=== PATIENT | male | born 1995 | race Caucasian/White ===

== ENCOUNTER 2017-09-20 11:44 | Emergency (ER) | payer SELFPAY ==
[2017-09-20 11:51] VITALS: BP 127/53
--- NOTE | 2017-09-20 13:02 | EKG REPORT ---
SEVERITY:- NORMAL ECG - SINUS RHYTHM : Confirmed by: Masoud Hardy MD 20-Sep-2017 13:01:37
[2017-09-20 13:38] LABS: ABSOLUTE EOSINOPHILS # (AUTO) 0.3 10^3/uL (0.0-0.6); ABSOLUTE LYMPHOCYTES (AUTO) 1.8 10^3/uL (0.5-4.7); ABSOLUTE MONOCYTES (AUTO) 0.6 10^3/uL (0.1-1.4); ABSOLUTE NEUT (AUTO) 4.3 10^3/uL (1.7-8.2); BASOPHILS % (AUTO) 0.7 % (0-2); EOSINOPHILS % (AUTO) 4.7 % (0-6); HEMATOCRIT 46.3 % (37.9-51.0); HEMOGLOBIN 15.5 g/dL (13.5-17.0); LYMPHOCYTES % (AUTO) 25.8 % (13-45); MEAN CORPUSCULAR HEMOGLOBIN 30.6 pg (27.0-33.4); MEAN CORPUSCULAR HGB CONC 33.4 g/dL (32.0-36.0); MEAN CORPUSCULAR VOLUME 92 fl (80-97); MONOCYTES % (AUTO) 8.2 % (3-13); PLATELET COUNT 281 10^3/uL (150-450); RED BLOOD COUNT 5.05 10^6/uL (4.35-5.55); RED CELL DISTRIBUTION WIDTH 13.7 % (11.5-14.0); SEGMENTED NEUTROPHILS % (AUTO) 60.6 % (42-78); TOTAL CELLS COUNTED % (AUTO) 100 %
[2017-09-20 13:52] LABS: ALANINE AMINOTRANSFERASE 28 U/L (21-72); ALBUMIN 4.9 g/dL (3.5-5.0); ALKALINE PHOSPHATASE 66 U/L (38-126); ANION GAP 13 (5-19); ASPARTATE AMINO TRANSFERASE 16 U/L (17-59); BILIRUBIN,DIRECT 0.3 mg/dL (0.0-0.4); BILIRUBIN,TOTAL 0.8 mg/dL (0.2-1.3); BLOOD UREA NITROGEN 14 mg/dL (7-20); CARBON DIOXIDE 28 mmol/L (22-30); CHLORIDE 102 mmol/L (98-107); GLUCOSE 95 mg/dL (75-110); POTASSIUM 4.7 mmol/L (3.6-5.0); SODIUM 142.9 mmol/L (137-145); TOTAL PROTEIN 7.5 g/dL (6.3-8.2)
--- NOTE | 2017-09-20 14:42 | ER Document Report ---
ED Medical Screen (RME) - General Chief Complaint: Chest Pain Stated Complaint: CHEST PAIN Time Seen by Provider: 09/20/17 12:27 Notes: Try to find patient to follow-up on laboratories. [facility] nurse states the patient came up to the desk and asked if laboratories were back. She says when she told him no he became upset and said he was leaving and not waiting any longer. She states that he refused to sign any type of documentation. Patient' s laboratories are reviewed and are unremarkable as was his EKG. TRAVEL OUTSIDE OF THE [place] IN LAST 30 DAYS: No - Related Data Allergies/Adverse Reactions: No Known Allergies Allergy (Verified 09/20/17 12:06) Past Medical History - Social History Chew tobacco use (# tins/day): No Frequency of alcohol use: None Drug Abuse: None Renal/ Medical History: Denies: Hx Peritoneal Dialysis Physical Exam - Vital signs Vitals: Temp Pulse Resp BP Pulse Ox 98.6 F 81 17 127/53 H 100 09/20/17 11:49 09/20/17 11:49 09/20/17 11:49 09/20/17 11:49 09/20/17 11:49 Course - Vital Signs Vital signs: Temp Pulse Resp BP Pulse Ox 98.6 F 81 17 127/53 H 100 09/20/17 11:49 09/20/17 11:49 09/20/17 11:49 09/20/17 11:49 09/20/17 11:49 - Laboratory Result Diagrams: 09/20/17 12:35 09/20/17 12:35 Laboratory results interpreted by me: 09/20/17 12:35 AST 16 L Doctor's Discharge - Discharge Disposition: ELOPED
== END 2017-09-20 13:41 | disposition left against medical advice (07) ==
LOC: ER 11:44
DX: R07.9 Chest pain, unspecified (principal); Z53.29 Procedure and treatment not carried out because of patient's decision for other reasons
CPT/HCPCS: 36415; 80053; 83735; 84484; 85025; 93005; 93010; 99281

== ENCOUNTER 2017-09-21 03:42 | Emergency (ER) | payer SELFPAY ==
[2017-09-21] MEDS ORDERED: MAG HYDROX/AL HYDROX/SIMETH SUSP 30 ML UDCUP PO ONE (04:18)
[2017-09-21] MEDS ORDERED: METOCLOPRAMIDE HCL ORAL SOLN 10 MG/10 ML UDCUP PO ONE (04:18)
[2017-09-21] MEDS ORDERED: LIDOCAINE 2% VISCOUS SOLN 20 ML UDCUP PO ONE (04:18)
--- NOTE | 2017-09-21 04:23 | ER Document Report ---
HPI - HPI Pain Level: 1 Notes: Patient is a 21-year-old male who presents to the ED complaining of chest pain that is worse with stretching and pressure 1-2 days. Patient states that he also has intermittent episodes where his heart will start to race. Patient states that he has had a history and workup in the past for tachycardia. Patient states that tachycardia is nothing new to him. Patient states he has not seen a floral designer salesperson in the past, but was being worked up by his PCM previously. Pt states they moved to the area recently and he has not established with anyone yet. 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 He denies any drug allergies. Patient does admit to chewing tobacco, but denies any smoking or IV drug use including other miscellaneous drugs. Patient denies any excessive alcohol intake. No drug allergies. Denies any other significant cardiopulmonary medical history or any cardiac family history. Denies any headache, fever, neck pain, URI, sore throat , syncope, cough, shortness of breath, wheeze, dyspnea, abdominal pain, nausea/ vomiting/diarrhea, urinary retention, dysuria, hematuria, loss of control of bowel or bladder, numbness/tingling, muscle paralysis/weakness, or rash. Denies any recent trauma/surgery, prolonged immobilization, CA, hormones, prev dvt/PE. Patient was evaluated last night and had an RME note performed, but did not stay for his results nor to see me a mainside provider. - ROS Systems Reviewed and Negative: Yes All other systems reviewed and negative Past Medical History - Social History Smoking Status: Never Smoker Family History: Reviewed & Not Pertinent Renal/ Medical History: Denies: Hx Peritoneal Dialysis Vertical Provider Document - CONSTITUTIONAL Agree With Documented VS: Yes Notes: PHYSICAL EXAMINATION: GENERAL: Well-appearing, well-nourished and in no acute distress. Vitals: HR 88 and RR 16 during my exam. HEAD: Atraumatic, normocephalic. EYES: Pupils equal round and reactive to light, extraocular movements intact, sclera anicteric, conjunctiva are normal. ENT: EAC clear b/l. TM's intact b/l without erythema, fluid, or perforation. Nares patent and without discharge. oropharynx clear without exudates. No tonsilar hypertrophy or erythema. Moist mucous membranes. No sinus tenderness. NECK: Normal range of motion, supple without lymphadenopathy Chest: + moderate tenderness to palp of the lower chest wall, correlates with pain described. No flail chest. Equal rise/fall. LUNGS: Breath sounds clear to auscultation bilaterally and equal. No wheezes rales or rhonchi. HEART: Regular rate and rhythm without murmurs, rubs, gallops. ABDOMEN: Soft, nondistended abdomen. No guarding, no rebound. No masses appreciated. Normal bowel sounds present. No CVA tenderness bilaterally. + mild tenderness to the epigastrum. Allan negative. Musculoskeletal: FROM to passive/active. Strength 5+/5. Allyssa negative. Extremities: No cyanosis, clubbing, or edema b/l. Peripheral pulses 2+. Capillary refill less than 3 seconds. NEUROLOGICAL: Normal speech, normal gait. Normal sensory, motor exams PSYCH: Normal mood, normal affect. SKIN: Warm, Dry, normal turgor, no rashes or lesions noted. - INFECTION CONTROL TRAVEL OUTSIDE OF THE [place] IN LAST 30 DAYS: No Course - Re-evaluation Re-evalutation: 09/21/17 04:42 Patient is an afebrile, well-hydrated, 19-year-old male who presents to the ED with chest wall pain and epigastric pain, suspect inflammatory and possible GERD /Gastritis. Vitals are acceptable. PE is otherwise unremarkable. Pt had a CBC , CMP, and Trop performed several hours ago and was negative. EKG unremarkable as well as a CXR. Pt has reproducible chest wall pain to palpation. GI cocktail, no adequate response. Pt is tolerating PO w/o any difficulty. heart score of 0. PERC 0. Low suspicion for any ACS, PE, pneumothorax, pericarditis , dissection, respiratory compromise, severe dehydration, sepsis, meningitis, or other systemic emergent condition at this time. Patient is aware that his condition can change from initial presentation and he needs to monitor symptoms closely and seek medical attention for any acute changes. Recommend conservative measures for symptoms. Recheck with your PCM in 3-5 days. Schedule an appointment with Cardiology. Return to the ED with any worsening/ concerning symptoms otherwise as reviewed in discharge. Patient is in agreement. Discharge - Discharge Clinical Impression: Chest wall pain Condition: Stable Disposition: HOME, SELF-CARE Instructions: Chest Wall Pain ([facility]), Reflux Disease (GERD) ([facility]) Additional Instructions: Maintain adequate fluid and food intake Take home medications as directed Low sodium/fat diet Exercise regularly Weight control Monitor blood pressure and HR daily and keep a log Monitor symptoms for any acute changes Recheck with your PCM in 3-5 days Schedule a follow-up with cardiology Return to the ED with any worsening symptoms and/or development of fever, headache, chest pain, palpitations, syncope, shortness of breath, trouble breathing, abdominal pain, n/v/d, blood in stool/urine, loss of control of bowel /bladder, urinary retention, muscle weakness/paralysis, numbness/tingling, or other worsening symptoms that are concerning to you. Forms: Return to Work Referrals: TEMI CHAUDHRY MD [ACTIVE STAFF] - Follow up as needed
--- NOTE | 2017-09-21 04:30 | RADIOLOGY REPORT (SQ) ---
EXAM DESCRIPTION: CHEST 2 VIEWS CLINICAL HISTORY: 21 years Male, chest pain COMPARISON: None. NUMBER OF VIEWS/TECHNIQUE: 2, PA and Lateral LIMITATIONS: None. FINDINGS: Normal lung volume. Clear parenchyma. Normal cardiac silhouette. Intact bony thorax. IMPRESSION: No acute cardiopulmonary findings.
[2017-09-21 04:56] VITALS: BP 135/63
--- NOTE | 2017-09-21 07:58 | EKG REPORT ---
SEVERITY:- BORDERLINE ECG - SINUS RHYTHM [facility] BY VOLTAGE : Confirmed by: Masoud Hardy MD 21-Sep-2017 07:57:32
== END 2017-09-21 04:56 | disposition home or self-care (01) ==
LOC: ER 03:42
DX: R07.89 Other chest pain (principal); R10.13 Epigastric pain; X50.0XXA Overexertion from strenuous movement or load, initial encounter; Y99.0 Civilian activity done for income or pay; F17.228 Nicotine dependence, chewing tobacco, with other nicotine-induced disorders
CPT/HCPCS: 93005; 99285; 71046; 93010; J3490

== ENCOUNTER 2017-10-03 00:19 | Emergency (ER) | payer SELFPAY ==
[2017-10-03] MEDS ORDERED: ALBUTEROL SULFATE HFA (90 MCG/PUFF) 200 PUFF/8.5 GM MDI IH ONE (02:02)
[2017-10-03] MEDS ORDERED: DEXAMETHASONE 4 MG TABLET PO ONE (02:02)
[2017-10-03] MEDS ORDERED: BENZONATATE 100 MG CAPSULE PO ONE (02:02)
[2017-10-03] MEDS ORDERED: CETIRIZINE 10 MG TABLET PO ONE (02:03)
--- NOTE | 2017-10-03 02:04 | ER Document Report ---
ED General - General Chief Complaint: Productive Cough Stated Complaint: COUGHING Time Seen by Provider: 10/03/17 01:46 Notes: Patient is a 21-year-old male with a past medical history, does not smoke who presents with 1 week of persistent cough. He is here with his and 2 children who have the same symptoms. Notes associated sputum production with the cough. He denies any fever, syncope, or significant shortness of breath. He has not seen his primary doctor regarding today's concerns. Nothing improves or worsens his symptoms. Nothing is new or different about the symptoms tonight that prompted a visit to the emergency department only that the patient states the symptoms are not going away. He denies a history of similar symptoms in the past. TRAVEL OUTSIDE OF THE [place] IN LAST 30 DAYS: No - Related Data Allergies/Adverse Reactions: No Known Allergies Allergy (Verified 09/20/17 12:06) Past Medical History - General Information source: Patient - Social History Smoking Status: Never Smoker Chew tobacco use (# tins/day): No Frequency of alcohol use: None Drug Abuse: None Lives with: Spouse/Significant other Family History: Reviewed & Not Pertinent Patient has suicidal ideation: No Patient has homicidal ideation: No Renal/ Medical History: Denies: Hx Peritoneal Dialysis Review of Systems - Review of Systems Notes: Constitutional: Negative for fever. HENT: Negative for sore throat. Eyes: Negative for visual changes. Cardiovascular: Negative for chest pain. Respiratory: Positive for cough and sputum production Gastrointestinal: Negative for abdominal pain, vomiting or diarrhea. Genitourinary: Negative for dysuria. Musculoskeletal: Negative for back pain. Skin: Negative for rash. Neurological: Negative for headaches, weakness or numbness. 10 point ROS negative except as marked above and in HPI. Physical Exam - Vital signs Vitals: Temp Pulse Resp BP Pulse Ox 99.2 F 86 18 135/83 H 98 10/03/17 00:23 10/03/17 00:23 10/03/17 00:23 10/03/17 00:23 10/03/17 00:23 Interpretation: Normal Notes: PHYSICAL EXAMINATION: GENERAL: Well-appearing, well-nourished and in no acute distress. HEAD: Atraumatic, normocephalic. EYES: Pupils equal round and reactive to light, extraocular movements intact, sclera anicteric, conjunctiva are normal. ENT: nares patent, oropharynx clear without exudates. Moist mucous membranes. NECK: Normal range of motion, supple without lymphadenopathy LUNGS: Breath sounds clear to auscultation bilaterally and equal. No wheezes rales or rhonchi. HEART: Regular rate and rhythm without murmurs ABDOMEN: Soft, nontender, normoactive bowel sounds. No guarding, no rebound. No masses appreciated. EXTREMITIES: Normal range of motion, no pitting or edema. No cyanosis. NEUROLOGICAL: No focal neurological deficits. Moves all extremities spontaneously and on command. PSYCH: Normal mood, normal affect. SKIN: Warm, Dry, normal turgor, no rashes or lesions noted. Course - Re-evaluation Re-evalutation: 10/03/17 02:02 Patient presents with a clinical history and exam most consistent with an acute viral bronchitis. Patient is overall well in appearance without tachypnea, hypoxemia, tachycardia, or difficulty with ambulation. Breath sounds are clear bilaterally. No fever. Patient does have additional signs of upper respiratory infection including nasal congestion, sore throat, and sinus pressure. No indication for labs or imaging. Will treat with bronchodilators, single dose of dexamethasone, and Tessalon Perles. At this time will discharge with return precautions and follow-up recommendations. Verbal discharge instructions given a the bedside and opportunity for questions given. Medication warnings reviewed. Patient is in agreement with this plan and has verbalized understanding of return precautions and the need for primary care follow-up in the next 24-72 hours. - Vital Signs Vital signs: Temp Pulse Resp BP Pulse Ox 99.3 F 87 18 135/76 H 96 10/03/17 02:06 10/03/17 02:06 10/03/17 02:06 10/03/17 02:06 10/03/17 02:06 Discharge - Discharge Clinical Impression: Bronchitis, Persistent cough Condition: Good Disposition: HOME, SELF-CARE Additional Instructions: You were seen for symptoms most consistent with bronchitis. This can take up to 12 weeks to fully resolve. This is generally due to a viral infection. Please follow-up with your primary doctor in the next 2-3 days. Return if you develop worsening cough, vomiting, fever >100.4, pass out, begin coughing blood, or have any other symptoms that are concerning to you. Please use the medications prescribed today as directed. You may also begin taking cetirizine also known as Zyrtec 10 mg oral daily Prescriptions: Benzonatate [Tessalon Perles 100 mg Capsule] 100 mg PO Q8HP PRN #40 capsule PRN Reason:
[2017-10-03 02:19] VITALS: BP 135/76
== END 2017-10-03 02:37 | disposition home or self-care (01) ==
LOC: ER 00:19
DX: J40 Bronchitis, not specified as acute or chronic (principal); R05 Cough
CPT/HCPCS: 99283; J3490